=== PATIENT | male | born 1955 | race Caucasian/White ===

== ENCOUNTER 2016-11-01 14:30 | Emergency (ER) | payer SELFPAY ==
[~2016-11-01] VITALS: Ht 162.6 cm; Wt 74.1 kg
[~2016-11-01 14:30] MED LIST: CENTTAB9 PO; GLIP10 PO; [UNRECOGNIZED DRUG - CODE] EX
[2016-11-01 14:32] VITALS: BP 188/98; PULSE 97; RESP 14; TEMP 97.8; O2SAT 95
--- NOTE | 2016-11-01 15:18 | PD ---
HPI Chief Complaint: Cold / Flu Symptoms Time Seen by Provider: 15:00 Travel History International Travel<30 days: No Contact w/Intl Traveler<30days: No Traveled to known affect area: No History of Present Illness HPI 61-year-old male presents for evaluation of cough. Symptoms started 1 week ago. The cough is productive with phlegm. He denies any shortness of breath, fevers, sore throat, rash, abdominal pain, nausea, vomiting. No sick contacts. No recent travel. He reports a history of diabetes. He has no other complaints at this time. [facility] Past Medical History Diabetes: Yes Diminished Hearing: No Social History Alcohol Use: Yes (OCCASIONALLY) Tobacco Use: No Substance Use: No Allergies-Medications (Allergen,Severity, Reaction): Coded Allergies: No Known Allergies (Unverified , 11/01/16) Reported Meds & Prescriptions Reported Meds & Active Scripts Active Reported Enalapril (Enalapril Maleate) 5 Mg Tab 5 Mg PO BID Glyburide 5 Mg Tab 5 Mg PO DAILY Take with meals at the same time each day Metformin (Metformin HCl) 1,000 Mg Tab 1,000 Mg PO BIDPC With meals Review of Systems Except as stated in HPI: all other systems reviewed are Neg Physical Exam Narrative GENERAL: Well-developed well-nourished male in no acute distress SKIN: Warm and dry. HEAD: Atraumatic. Normocephalic. EYES: Left artificial eye. ENT: No nasal bleeding or discharge. Mucous membranes pink and moist. NECK: Trachea midline. No JVD. CARDIOVASCULAR: Regular rate and rhythm. No murmur appreciated. RESPIRATORY: No accessory muscle use. Clear to auscultation. Breath sounds equal bilaterally. GASTROINTESTINAL: Abdomen soft, non-tender, nondistended. Hepatic and splenic margins not palpable. MUSCULOSKELETAL: No obvious deformities. No clubbing. No cyanosis. No edema. NEUROLOGICAL: Awake and alert. No obvious cranial nerve deficits. Motor grossly within normal limits. Normal speech. PSYCHIATRIC: Appropriate mood and affect; insight and judgment normal. Data Data Last Documented VS Vital Signs Date Time Temp Pulse Resp B/P Pulse Ox O2 Delivery O2 Flow Rate FiO2 11/01/16 15:30 Room Air 11/01/16 14:32 97.8 97 14 188/98 95 Orders Chest, Pa & Lat (11/01/16 ) [facility] Medical Decision Making Medical Screen Exam Complete: Yes Emergency Medical Condition: Yes Medical Record Reviewed: Yes Differential Diagnosis Bronchitis, pneumonia, reactive airway disease, sinusitis, rhinitis Narrative Course 61-year-old male with 1 week of congestion and productive cough. Physical examination is reassuring. Chest x-ray has been ordered. Chest x-ray is negative and the patient appears to have a viral bronchitis. He is stable for discharge with cough suppressant medication. Diagnosis Primary Impression: Bronchitis Additional Instructions: Medication as needed. Stable hydrated and well-nourished. Follow-up with primary care physician and return for any emergent medical conditions. Med/Other Pt SpecificInfo: Prescription(s) given Scripts Benzonatate (Tessalon Perles)100 Mg Lif944 Mg PO TID PRN (COUGH) #30 CAP Ref 0 Prov:Tiana Longoria MD 11/01/16 Disposition: 01 DISCHARGE HOME Condition: Stable Ja Phoenix Nov 01, 2016 15:17
[2016-11-01] MEDS ORDERED: GLYB5TAB3 PO (15:30)
[2016-11-01] MEDS ORDERED: ENAL5TAB PO (15:30)
[2016-11-01] MEDS ORDERED: METF1000 PO (15:30)
--- NOTE | 2016-11-01 15:50 | RADRPT ---
EXAM DATE/TIME: 11/01/2016 15:35 [place] COMPARISON: No previous studies available for comparison. INDICATIONS : Cough. MEDICAL HISTORY : None. SURGICAL HISTORY : None. ENCOUNTER: Initial ACUITY: 1 week PAIN SCORE: 0/10 LOCATION: Bilateral chest FINDINGS: PA and lateral views of the chest demonstrate the lungs to be symmetrically aerated without evidence of mass, infiltrate or effusion. The cardiomediastinal contours are unremarkable. Osseous structure s are intact. CONCLUSION: No acute disease. There is no evidence of pneumonia. Rodger Ramirez MD on November 01, 2016 at 15:48 Board Certified Radiologist. This report was verified electronically.
[2016-11-01] MEDS ORDERED: BENZ100 PO (16:03)
== END 2016-11-01 16:31 | disposition home or self-care (01) ==
LOC: NETRI 14:30
DX: J40 Bronchitis, not specified as acute or chronic (principal); E11.9 Type 2 diabetes mellitus without complications
CPT/HCPCS: 71020; 99283